=== PATIENT | female | born 1980 | race African-American/Black ===

== ENCOUNTER 2020-12-24 18:01 | Emergency (ER) | payer OTHER ==
[~2020-12-24] VITALS: Ht 149.9 cm; Wt 64.7 kg
--- NOTE | 2020-12-24 18:27 | NUR ---
TRIAGE: ABDOMINAL PAIN SINCE LAST IRNA. HISTORY FIBROIDS AND ULCERS.
--- NOTE | 2020-12-24 18:35 | NUR ---
ASSUMED CARE, PT UP TO BATHROOM WITH INSTRUCTION TO COLLECT SAMPLE. STEADY GAIT.
[2020-12-24] MEDS ORDERED: CHOL10003 PO (18:48)
[2020-12-24] MEDS ORDERED: MULT-90 PO (18:48)
[2020-12-24] MEDS ORDERED: L. A1CAP8 PO (18:49)
--- NOTE | 2020-12-24 19:00 | NUR ---
RECEIVED REPORT FROM KELI PATRICK AND KELI DIEZ TO ASSUME CARE OF PT. AT THIS TIME.
--- NOTE | 2020-12-24 19:03 | NUR ---
PT. AWAITING PROVIDER EVAL. PT. CALM/COOPERATIVE WITH STAFF. RESTING ON GURNEY WITH MONITORS IN PLACE. ALL SAFETY MEASURES OBSERVED.
--- NOTE | 2020-12-24 19:17 | NUR ---
URINE SAMPLE COLLECTED AND SENT TO LAB.
[2020-12-24] MEDS ORDERED: MAALOX/HYOSCYAMINE/LIDOCAINE 45 ML BTL ONE (19:19)
[2020-12-24] MEDS ORDERED: FAMOTIDINE 20 MG/2 ML ONE (19:19)
[2020-12-24] MEDS ORDERED: ONDANSETRON 2MG/ML, 2ML ONE (19:19)
[2020-12-24] MEDS ORDERED: MAALOX/HYOSCYAMINE/LIDOCAINE 45 ML BTL PO ONE (19:30)
[2020-12-24] MEDS ORDERED: FAMOTIDINE 20 MG/2 ML IVPush ONE (19:30)
[2020-12-24] MEDS ORDERED: ONDANSETRON 2MG/ML, 2ML IVPush ONE (19:30)
[2020-12-24] MEDS ORDERED: SODIUM CHLORIDE 0.9% 1,000ML IVBOLUS ONE (19:30)
[2020-12-24] MEDS ORDERED: SODIUM CHLORIDE FLUSH 10ML SYR IVF ONE (19:30)
[2020-12-24 19:49] LABS: MICROSCOPIC NOT IND
--- NOTE | 2020-12-24 20:10 | NUR ---
PT. REPORTS PAIN IS MORE TOLERABLE AFTER MEDS BUT STILL C/O 03/08 ABD PAIN. LABS PENDING. VS UPDATED. PT. DENIES NEEDS AT THIS TIME.
[2020-12-24 20:18] LABS: ALANINE AMINOTRANSFERASE 14 U/L (12-78); ALBUMIN 3.6 g/dL (3.4-5.0); ANION GAP 5 mmol/L (5-15); CALCIUM 8.2 mg/dL (8.5-10.1); CHLORIDE 110 mmol/L (98-107); CREATININE 0.65 mg/dL (0.55-1.02)
[2020-12-24 20:20] LABS: ALKALINE PHOSPHATASE 45 U/L (45-117); BILIRUBIN,TOTAL 0.4 mg/dL (0.2-1.0); TOTAL PROTEIN 6.9 g/dL (6.4-8.2)
--- NOTE | 2020-12-24 20:51 | NUR ---
DR. HERNÁNDEZ IN TO DISCUSS POC WITH PT. AND FAMILY. PT. DENIES NEEDS. NEEDS RE-DRAW FOR BLOOD WORK.
[2020-12-24 20:53] VITALS: BP 93/57
[2020-12-24 21:07] LABS: BASOPHILS % (AUTO) 1 % (0-1); EOSINOPHILS % (AUTO) 3 % (1-7); LYMPHOCYTES % (AUTO) 25 % (22-44); MEAN CORPUSCULAR HEMOGLOBIN 31.3 pg (27.0-34.8); MEAN CORPUSCULAR HGB CONC 33.7 g/dL (32.4-35.8); MEAN PLATELET VOLUME 9.8 fL (7.4-10.4); MONOCYTES % (AUTO) 17 % (2-9); NEUTROPHILS % (AUTO) 56 % (42-75); PLATELET COUNT 147 x10^3/uL (130-400); RED CELL DISTRIBUTION WIDTH 13.3 % (9.6-15.2)
[2020-12-24 21:41] LABS: MD SCAN
== END 2020-12-24 21:30 | disposition home or self-care (01) ==
LOC: ED 21:24
DX: K27.3 Acute peptic ulcer, site unspecified, without hemorrhage or perforation (principal); R11.0 Nausea; R10.10 Upper abdominal pain, unspecified
CPT/HCPCS: 36415; 80053; 81003; 83690; 85025; 96361; 96374; 96375; 99284; J2405; J7030